=== PATIENT | male | born 1990 | race American Indian/Alaskan Native ===

== ENCOUNTER 2019-01-22 14:11 | Emergency (ER) | payer SELFPAY ==
[2019-01-22 15:02] LABS: Basophils % (Auto) 0.5 % (0.0-1.8); Eosinophils % (Auto) 0.3 % (0.0-4.3); Hematocrit 47.3 % (35.5-45.6); Hemoglobin 16.3 gm/dl (11.8-15.2); Lymphocytes # (Auto) 1.7 K/mm3 (1.2-5.4); Lymphocytes % (Auto) 19.9 % (13.4-35.0); Mean Corpuscular HGB Conc 34 % (32-34); Mean Corpuscular Volume 82 fl (84-94); Monocytes # (Auto) 0.7 K/mm3 (0.0-0.8); Monocytes % (Auto) 8.9 % (0.0-7.3); Platelet Count 158 K/mm3 (140-440); Red Cell Distribution Width 16.4 % (13.2-15.2)
[2019-01-22 15:23] LABS: BUN/Creatinine Ratio 9; Blood Urea Nitrogen 8 mg/dL (9-20); Calcium 9.4 mg/dL (8.4-10.2); Hemolysis Index 10
[2019-01-22 15:33] LABS: Amphetamine Screen,Urine PRESUMPTIVE NEGATIVE; Benzodiazepines Screen,Urine PRESUMPTIVE NEGATIVE; Cannabinoid Screen,Urine PRESUMPTIVE NEGATIVE; Cocaine Screen,Urine PRESUMPTIVE NEGATIVE; Methadone Screen,Urine PRESUMPTIVE NEGATIVE; Opiate Screen,Urine PRESUMPTIVE NEGATIVE
[2019-01-22 17:16] LABS: Bilirubin,Urine NEG (Negative); Blood,Urine MOD (Negative); Calcium Oxalate Crystals,Urine 1+; Color,Urine Yellow (Yellow); Mucus,Urine 1+ /HPF
--- NOTE | 2019-01-22 18:21 | Emergency Department Report ---
ED Psych HPI - General Chief Complaint: Psych Stated Complaint: PSYCH Time Seen by Provider: 01/22/19 15:14 Source: EMS Mode of arrival: Ambulatory Limitations: No Limitations - History of Present Illness Initial Comments: 28-year-old male with a past medical history of bipolar disorder and schizophrenia presents to the hospital from transitional home. Patient initially states he was here because he is homeless and needs a place to live. He told me he was homeless for "a long time". When I questions patient about being in a transition home as per triage statement, he states he has been in a transitional home for several months. He states today the person at the transitional home would not feed him because he refused to take medications. Patient states the medications do not belong to him and that is why he did not take it. He states he does not take any medications. He denies hallucinations, suicidal ideation, or homicidal ideation. He denies physical pain. Patient is slightly restless and shaking his legs during examination. As noted the patient was frequently responding to himself in the third person. - Related Data Home Medications Medication Instructions Recorded Confirmed Last Taken No Known Home Medications [No 01/22/19 01/22/19 Unknown Reported Home Medications] Allergies Allergy/AdvReac Type Severity Reaction Status Date / Time No Known Allergies Allergy Unverified 01/22/19 14:35 ED Review of Systems ROS: Stated complaint: PSYCH Other details as noted in HPI Comment: All other systems reviewed and negative ED Past Medical Hx - Past Medical History Previous Medical History?: Yes Hx Psychiatric Treatment: (bipolar, Schizophrenia) - Surgical History Past Surgical History?: No - Social History Smoking Status: Never Smoker Substance Use Type: None - Medications Home Medications: Home Medications Medication Instructions Recorded Confirmed Last Taken Type No Known Home Medications [No 01/22/19 01/22/19 Unknown History Reported Home Medications] ED Physical Exam - General Limitations: No Limitations - Other Other exam information: General: No acute distress Head: Atraumatic normocephalic Eyes: Normal appearance, pupils equal reactive to light, extraocular movements intact ENT: Normal oropharynx Neck: Normal appearance, no C-spine tenderness, no meningismus Chest: Clear to auscultation bilaterally, no wheezes, rales, or crackles Cardiovascular: Regular rate and rhythm Abdomen: Soft, nondistended, nontender, no rebound or guarding, normal bowel sounds Back: Normal inspection, nontender Extremity: Normal inspection, no deformity, full range of motion Neuro: Alert and oriented 3, speech clear, no gross motor or sensory deficit Psychiatric: Normal affect, restless, cooperative Skin: No rash, warmth, or erythema ED Course Vital Signs 01/22/19 01/22/19 01/22/19 14:29 16:13 19:30 Temperature 99.3 F 98.8 F Pulse Rate 104 H 79 96 H Respiratory 18 18 18 Rate Blood Pressure Blood Pressure 181/102 165/80 166/100 [Left] O2 Sat by Pulse 97 99 97 Oximetry 01/23/19 01/23/19 01/23/19 02:15 07:00 12:28 Temperature 97.7 F 98.3 F Pulse Rate 100 H 88 88 Respiratory 20 18 Rate Blood Pressure 200/118 Blood Pressure 156/100 200/118 [Left] O2 Sat by Pulse 98 96 Oximetry 01/23/19 01/23/19 01/23/19 13:00 14:16 20:51 Temperature 98.3 F 98.3 F Pulse Rate 94 H 83 86 Respiratory 18 18 Rate Blood Pressure 154/88 Blood Pressure 154/98 148/100 [Left] O2 Sat by Pulse 98 98 Oximetry - Reevaluation(s) Reevaluation #1: 01/22/19 18:52 pt evaluated by mental health does not met 1013 criteria +psychosis noted with auditory hallucinations pt states he does not want to take meds at this time I am unsure if pt was at a transitional home or if this is part of his delusion Case management consult ordered for placement and mental health evaluated with staff and with nurse practitioner mental health provider for repeat evaluation. ED Medical Decision Making - Lab Data Result diagrams: 01/22/19 14:47 01/22/19 14:47 Lab Results 01/22/19 01/22/19 01/22/19 Range/Units 02:07 14:47 14:47 WBC (4.5-11.0) K/mm3 RBC (3.65-5.03) M/mm3 Hgb (11.8-15.2) gm/dl Hct (35.5-45.6) % MCV (84-94) fl MCH (28-32) pg MCHC (32-34) % RDW (13.2-15.2) % Plt Count (140-440) K/mm3 Lymph % (Auto) (13.4-35.0) % [place] % (Auto) (0.0-7.3) % Eos % (Auto) (0.0-4.3) % Baso % (Auto) (0.0-1.8) % Lymph # (1.2-5.4) K/mm3 [place] # (0.0-0.8) K/mm3 Eos # (0.0-0.4) K/mm3 Baso # (0.0-0.1) K/mm3 Seg Neutrophils % (40.0-70.0) % Seg Neutrophils # (1.8-7.7) K/mm3 Sodium (137-145) mmol/L Potassium (3.6-5.0) mmol/L Chloride (98-107) mmol/L Carbon Dioxide (22-30) mmol/L Anion Gap mmol/L BUN (9-20) mg/dL Creatinine (0.8-1.5) mg/dL Estimated GFR ml/min BUN/Creatinine Ratio % Glucose (75-100) mg/dL Calcium (8.4-10.2) mg/dL Urine Color (Yellow) Urine Turbidity (Clear) Urine pH (5.0-7.0) Ur Specific [place] (1.003-1.030) Urine Protein (Negative) mg/dL Urine Glucose (UA) (Negative) mg/dL Urine Ketones (Negative) mg/dL Urine Blood (Negative) Urine Nitrite (Negative) Urine Bilirubin (Negative) Urine Urobilinogen (<2.0) mg/dL Ur Leukocyte Esterase (Negative) Urine WBC (Auto) (0.0-6.0) /HPF Urine RBC (Auto) (0.0-6.0) /HPF Calcium Oxalate Crystal Urine Mucus /HPF Salicylates < 0.3 L (2.8-20.0) mg/dL Urine Opiates Screen Urine Methadone Screen Acetaminophen < 5.0 L (10.0-30.0) ug/mL Ur Barbiturates Screen Ur Phencyclidine Scrn Ur Amphetamines Screen U Benzodiazepines Scrn Urine Cocaine Screen U Marijuana (THC) Screen Drugs of Abuse Note Plasma/Serum Alcohol < 0.01 (0-0.07) % 01/22/19 01/22/19 01/22/19 Range/Units 14:47 14:47 16:09 WBC 8.3 (4.5-11.0) K/mm3 RBC 5.80 H (3.65-5.03) M/mm3 Hgb 16.3 H (11.8-15.2) gm/dl Hct 47.3 H (35.5-45.6) % MCV 82 L (84-94) fl MCH 28 (28-32) pg MCHC 34 (32-34) % RDW 16.4 H (13.2-15.2) % Plt Count 158 (140-440) K/mm3 Lymph % (Auto) 19.9 (13.4-35.0) % [place] % (Auto) 8.9 H (0.0-7.3) % Eos % (Auto) 0.3 (0.0-4.3) % Baso % (Auto) 0.5 (0.0-1.8) % Lymph # 1.7 (1.2-5.4) K/mm3 [place] # 0.7 (0.0-0.8) K/mm3 Eos # 0.0 (0.0-0.4) K/mm3 Baso # 0.0 (0.0-0.1) K/mm3 Seg Neutrophils % 70.4 H (40.0-70.0) % Seg Neutrophils # 5.8 (1.8-7.7) K/mm3 Sodium 140 (137-145) mmol/L Potassium 4.0 (3.6-5.0) mmol/L Chloride 102.2 (98-107) mmol/L Carbon Dioxide 27 (22-30) mmol/L Anion Gap 15 mmol/L BUN 8 L (9-20) mg/dL Creatinine 0.9 (0.8-1.5) mg/dL Estimated GFR > 60 ml/min BUN/Creatinine Ratio 9 % Glucose 99 (75-100) mg/dL Calcium 9.4 (8.4-10.2) mg/dL Urine Color Yellow (Yellow) Urine Turbidity Slightly-cloudy (Clear) Urine pH 5.0 (5.0-7.0) Ur Specific [place] 1.025 (1.003-1.030) Urine Protein 100 mg/dl (Negative) mg/dL Urine Glucose (UA) Neg (Negative) mg/dL Urine Ketones Tr (Negative) mg/dL Urine Blood Mod (Negative) Urine Nitrite Neg (Negative) Urine Bilirubin Neg (Negative) Urine Urobilinogen 2.0 (<2.0) mg/dL Ur Leukocyte Esterase Neg (Negative) Urine WBC (Auto) 5.0 (0.0-6.0) /HPF Urine RBC (Auto) 15.0 (0.0-6.0) /HPF Calcium Oxalate Crystal 1+ Urine Mucus 1+ /HPF Salicylates (2.8-20.0) mg/dL Urine Opiates Screen Urine Methadone Screen Acetaminophen (10.0-30.0) ug/mL Ur Barbiturates Screen Ur Phencyclidine Scrn Ur Amphetamines Screen U Benzodiazepines Scrn Urine Cocaine Screen U Marijuana (THC) Screen Drugs of Abuse Note Plasma/Serum Alcohol (0-0.07) % 01/22/19 Range/Units Unknown WBC (4.5-11.0) K/mm3 RBC (3.65-5.03) M/mm3 Hgb (11.8-15.2) gm/dl Hct (35.5-45.6) % MCV (84-94) fl MCH (28-32) pg MCHC (32-34) % RDW (13.2-15.2) % Plt Count (140-440) K/mm3 Lymph % (Auto) (13.4-35.0) % [place] % (Auto) (0.0-7.3) % Eos % (Auto) (0.0-4.3) % Baso % (Auto) (0.0-1.8) % Lymph # (1.2-5.4) K/mm3 [place] # (0.0-0.8) K/mm3 Eos # (0.0-0.4) K/mm3 Baso # (0.0-0.1) K/mm3 Seg Neutrophils % (40.0-70.0) % Seg Neutrophils # (1.8-7.7) K/mm3 Sodium (137-145) mmol/L Potassium (3.6-5.0) mmol/L Chloride (98-107) mmol/L Carbon Dioxide (22-30) mmol/L Anion Gap mmol/L BUN (9-20) mg/dL Creatinine (0.8-1.5) mg/dL Estimated GFR ml/min BUN/Creatinine Ratio % Glucose (75-100) mg/dL Calcium (8.4-10.2) mg/dL Urine Color (Yellow) Urine Turbidity (Clear) Urine pH (5.0-7.0) Ur Specific [place] (1.003-1.030) Urine Protein (Negative) mg/dL Urine Glucose (UA) (Negative) mg/dL Urine Ketones (Negative) mg/dL Urine Blood (Negative) Urine Nitrite (Negative) Urine Bilirubin (Negative) Urine Urobilinogen (<2.0) mg/dL Ur Leukocyte Esterase (Negative) Urine WBC (Auto) (0.0-6.0) /HPF Urine RBC (Auto) (0.0-6.0) /HPF Calcium Oxalate Crystal Urine Mucus /HPF Salicylates (2.8-20.0) mg/dL Urine Opiates Screen Presumptive negative Urine Methadone Screen Presumptive negative Acetaminophen (10.0-30.0) ug/mL Ur Barbiturates Screen Presumptive negative Ur Phencyclidine Scrn Presumptive negative Ur Amphetamines Screen Presumptive negative U Benzodiazepines Scrn Presumptive negative Urine Cocaine Screen Presumptive negative U Marijuana (THC) Screen Presumptive negative Drugs of Abuse Note Disclamer Plasma/Serum Alcohol (0-0.07) % - Medical Decision Making See ed course note pt is voluntary pending further mental health evaluation and case mgment consult - Differential Diagnosis schizophrenia, psychosis, combative behavior, medication noncompliance Critical Care Time: No Critical care attestation.: If time is entered above; I have spent that time in minutes in the direct care of this critically ill patient, excluding procedure time. ED Disposition Clinical Impression: Schizophrenia, Psychosis, Disorganized thought process, Delusions, H ypertension, Medical clearance for psychiatric admission Disposition: [id number]/TX-65 PSY HOSP/PSY UNIT Is pt being admited?: No Condition: Stable Time of Disposition: 01:23
[2019-01-23] MEDS: CATAPRES PO ONE ×2 (10:56→12:28)
[2019-01-23] MEDS: NORVASC PO SCH ×2 (11:01→14:16)
[2019-01-23] MEDS: HCTZ PO SCH ×2 (11:02→14:28)
[2019-01-23] MEDS ORDERED: GEODON IM ONE (11:47)
[2019-01-23] MEDS ORDERED: WATER FOR INJ Sterile (PF) 10 ML ONE (11:54)
--- NOTE | 2019-01-23 13:00 | Consultation ---
History of Present Illness - Reason for Consult Consult date: 01/23/19 Reason for consult: Mental Health Evaluation Requesting physician: PRATIMA PIERSON - Chief Complaint Chief complaint: "My body is somewhere else" - History of Present Psychiatric Illness 28 y.o. AA male who presented to the ER for homelessness. Today the patient was disorganized and talking in 3rd person during the assessment. He stated that he came to the ER because he was homeless. He was asked about his past residence his answer wasn't logical. He started rambling about his body being at his current residence and some other person (himself) being at the ER. The patient stated, "He cannot return home." He was asked about his mental health, he stated that he was a patient at [facility] in the past. He stated that he was at the facility for a month. He is adamant that medication isn't needed. He denies SI/HI's and VH's. He would not confirm or deny AH's. The patient's UDS is negative. Medications and Allergies Allergies Allergy/AdvReac Type Severity Reaction Status Date / Time No Known Allergies Allergy Unverified 01/22/19 14:35 Home Medications Medication Instructions Recorded Confirmed Last Taken Type No Known Home Medications [No 01/22/19 01/22/19 Unknown History Reported Home Medications] Active Meds: Active Medications Amlodipine Besylate (Norvasc) 5 mg PO DAILY AKBAR Hydrochlorothiazide (Hctz) 25 mg PO DAILY AKBAR Past psychiatric history - Past Medical History Past Medical History: No medical history Past Surgical History: No surgical history - past Psychiatric treatment and history psychiatric treatment history: Inpatient psy services in the past per the patient. Unable to obtain [facility]. - Social History Social history: other (Homeless) Mental Status Exam - Vital signs Last Vital Signs Temp 98.3 F 01/23/19 07:00 Pulse 88 01/23/19 12:28 Resp 18 01/23/19 07:00 BP 200/118 01/23/19 12:28 Pulse Ox 96 01/23/19 07:00 - Exam Narrative exam: MSE: Appearance: calm, cooperative Behavior: regular eye contact Speech: regular rate and tone Mood: "okay" Affect: flat Thought Process: disorganized Thought Content: denies SI/HI's and AVH's, delusional, somewhat paranoid Motor Activity: lying in bed Cognition: A/O x 3 Insight: poor Judgment: poor I Results Result Diagrams: 01/22/19 14:47 01/22/19 14:47 Abnormal lab results 01/22/19 01/22/19 01/22/19 Range/Units 14:47 14:47 14:47 RBC (3.65-5.03) M/mm3 Hgb (11.8-15.2) gm/dl Hct (35.5-45.6) % MCV (84-94) fl RDW (13.2-15.2) % [place] % (Auto) (0.0-7.3) % Seg Neutrophils % (40.0-70.0) % BUN 8 L (9-20) mg/dL Salicylates < 0.3 L (2.8-20.0) mg/dL Acetaminophen < 5.0 L (10.0-30.0) ug/mL 01/22/19 Range/Units 14:47 RBC 5.80 H (3.65-5.03) M/mm3 Hgb 16.3 H (11.8-15.2) gm/dl Hct 47.3 H (35.5-45.6) % MCV 82 L (84-94) fl RDW 16.4 H (13.2-15.2) % [place] % (Auto) 8.9 H (0.0-7.3) % Seg Neutrophils % 70.4 H (40.0-70.0) % BUN (9-20) mg/dL Salicylates (2.8-20.0) mg/dL Acetaminophen (10.0-30.0) ug/mL All other labs normal. Assessment and Plan Assessment and plan: Impression: Unspecified Psychosis. Today the patient was calm, but delusional during the assessment. UDS is negative. DDx: Schizophrenia, Bipolar DO with psychosis Recommend/Plan: Initiate 1013 and start Zyprexa 5 mg PO HS for psychosis. Attempted to discuss possible metabolic side effects of Zyprexa with the patient. Baseline A1C/Lipid Panel ordered in the AM. Dispo: The patient was referred to inpatient psy services. Will staff with Dr. Benja Lim.
[2019-01-24] MEDS: NORVASC PO SCH (11:00)
[2019-01-24] MEDS: HCTZ PO SCH (11:00)
--- NOTE | 2019-01-24 11:57 | Progress Note ---
Subjective - Reason for Consult Consult date: 01/24/19 Reason for consult: Psychiatry Follow-up - Chief Complaint Chief complaint: "I am 50 cent" 28 y.o. AA male who presented to the ER for homelessness. Today the patient was still disorganized during the assessment. He appeared preoccupied. He is adamant that he is [employer] cent, the rapper. Most of his answers to questions were not logical, he needed redirection constantly. He was asked to discuss his mental health, he refused and walked off. No gestures of SI/HI's. Mental Status Exam - Vital signs Last Vital Signs Temp 97.9 F 01/24/19 09:37 Pulse 91 H 01/24/19 11:00 Resp 18 01/24/19 09:37 BP 146/87 01/24/19 11:00 Pulse Ox 98 01/24/19 09:37 - Exam Narrative exam: MSE: Appearance: in hospital attire Behavior: regular eye contact Speech: rapid Mood: preoccupied Affect: congruent to mood Thought Process: disorganized, tangential Thought Content: no gestures of SI/HI's and AVH's, delusional, somewhat paranoid Motor Activity: lying in bed Cognition: A/O x 3 Insight: poor Judgment: poor I Assessment and Plan Impression: Unspecified Psychosis. Today the patient was calm, but still delusional during the assessment. UDS is negative. DDx: Schizophrenia, Bipolar DO with psychosis Recommend/Plan: Continue 1013 and Zyprexa 5 mg PO HS for psychosis. Attempted to discuss possible metabolic side effects of Zyprexa with the patient. A1c/Lipid Panel ordered for the AM. Dispo: The patient was referred to inpatient psy services. Staffed with Dr. Benja Lim.
[2019-01-24] MEDS ORDERED: ATIVAN IM ONE (14:38)
[2019-01-25 06:20] LABS: Chol/HDL Ratio 4.74 %
--- NOTE | 2019-01-25 09:53 | Progress Note ---
Subjective - Reason for Consult Consult date: 01/25/19 Reason for consult: Psychiatry Follow-up - Chief Complaint Chief complaint: "I'm not here" 28 y.o. AA male who presented to the ER for homelessness. Today the patient was still disorganized during the assessment. He still seem to be preoccupied. He continue to be delusional about who is and where he's located. He would not answer most questions asked of him. No gestures of SI/HI's. No indications of side effects from his medication. Mental Status Exam - Vital signs Last Vital Signs Temp 98.5 F 01/25/19 01:00 Pulse 88 01/25/19 01:00 Resp 18 01/25/19 01:00 BP 147/107 01/25/19 01:00 Pulse Ox 99 01/24/19 21:06 - Exam Narrative exam: MSE: Appearance: in hospital attire Behavior: regular eye contact Speech: rapid Mood: preoccupied Affect: congruent to mood Thought Process: disorganized Thought Content: no gestures of SI/HI's and AVH's, delusional, somewhat paranoid Motor Activity: lying in bed Cognition: A/O x 3 Insight: poor Judgment: poor I Assessment and Plan Impression: Unspecified Psychosis. Today the patient was calm, but still delusional during the assessment. UDS is negative. Triglycerides elevated. DDx: Schizophrenia, Bipolar DO with psychosis Recommend/Plan: Continue 1013 and increase Zyprexa to 10 mg PO HS for psychosis. Attempted to discuss possible metabolic side effects of Zyprexa with the patient. Attempted to discuss with the patient the importance of a proper diet and exercise (Triglycerides elevated). Dispo: The patient was referred to inpatient psy services. Will staff with Dr. Benja Lim.
[2019-01-25] MEDS: NORVASC PO SCH (10:05)
[2019-01-25] MEDS: HCTZ PO SCH (10:05)
[2019-01-26 02:48] VITALS: BP 110/64
== END 2019-01-26 04:45 ==
LOC: EEVIPCON 14:11 → ED 14:11
DX: F29 Unspecified psychosis not due to a substance or known physiological condition (principal); F20.9 Schizophrenia, unspecified; F22 Delusional disorders; F31.9 Bipolar disorder, unspecified; Z59.0 Homelessness
CPT/HCPCS: 36415; 80048; 80061; 80307; 81001; 83036; 85025; 99285; J3486; 80320; G0480